=== PATIENT | female | born 1940 | race Caucasian/White ===

== ENCOUNTER → 2016-06-18 | Outpatient (CLI) | payer MEDICARE ==
[2014-06-10 15:31] VITALS: BP 104/53
[~2016-06-18] MED LIST: ALPR0.5T6 PO; ASPI-482 PO; ATOR40TA59 PO; BUSP10TA PO; BUSP7.5T PO; CHOL10003 PO; CHOL500016 PO; FERR325T58 PO; FOLI1TAB39; INSU100V8 SQ; INSU100V9 SQ; LOSA50TA6 PO; MELO-150 PO; MELO-156 PO; METO10TA PO; MORP15TA PO; MORP30TA PO; MORP30TA3 PO; OMEG-33 PO; ONDA4TAB7 PO; OXYC1TAB8 PO; PROM25TA10 PO; ROPI5TAB PO; SIMV80TA3 PO; SITA100T PO; TOPI50TA4 PO
--- NOTE | 2016-06-19 05:02 | PAIN ---
DATE OF SERVICE: 06/18/2016 DIAGNOSES: 1. Lumbar radiculopathy with lumbar spinal stenosis. 2. Myofascial pain. 3. Multiple joint pain. 4. Restless leg syndrome. HISTORY OF PRESENT ILLNESS: The patient is a 75-year-old female who returns for followup status post medication management with both MS Contin and oxycodone for breakthrough pain. Also, the patient is taking Requip at night for restless leg syndrome, which she reports does fairly well and Meloxicam daily for multiple joint pain. The patient is scheduled to see debt recovery officer coming up in a few months, but still having significant pain. She complains today of multiple joint pain in the wrists, elbows, shoulders, hips, knees, ankles and low back. The patient reports that her pain medications; however, is doing fairly well with controlling medication about 70-75% improvement, but she "hurts all over." The patient reports the pain as 7 on a scale of 10 at its worst, is having some increased back pain as well across the low back bilaterally with some radiation down the posterior gluteus and thighs, but not much above baseline on report. The patient reports no new motor or sensory deficits, no new bowel or bladder incontinence or other complaints, but still taking her medication with good discipline, has had appropriate K-TRACS reporting to date and appropriate urinalysis to date as well. PHYSICAL EXAMINATION: VITAL SIGNS: The patient's blood pressure 143/62, pulse 83, respirations 18, temperature 98.1 degrees Fahrenheit, height is 62 inches. Weight is 272 pounds. GENERAL: The patient is awake, alert, oriented, appropriate, very pleasant demeanor. HEENT: Head shows normocephalic, atraumatic. Extraocular movements are intact, symmetrical. Oral cavity, mucous membranes are moist and pink. Dentition is intact. NECK: Shows anterior throat supple without palpable lymphadenopathy noted. Swallow reflex is symmetrical. Neck shows full rotational motion of cervical spine, both laterally as well as extension and flexion without difficulty. CHEST: Shows normal on inspection. Breath sounds are clear to auscultation bilaterally. HEART: Shows S1 and S2 clear. No murmurs are auscultated. ABDOMEN: Soft, obese, nontender, nondistended, is obese, but without rebound or guarding demonstrated. BACK: Shows spine grossly in midline. Moderate exaggeration of thoracic kyphosis and mild flattening of lumbar lordotic curvature. Lumbar paraspinous muscle shows symmetrical with inspection and palpation shows moderate tenderness throughout the upper, middle and lower distribution, mostly in the lower distribution greater tenderness reported in the upper, middle, but symmetrical firm musculature, but normal in muscle girth. No trigger points. No radiation. No atrophy, hypertrophy. No tenderness over the sacrum or sacroiliac regions. The patient shows good rotation and motion of the lumbar spine, both laterally as well as extension and flexion without increase in pain. Lower extremities showed deep tendon reflexes 1+ in the biceps and the patellar and tendo calcaneus tendons and are equal. Motor exam is approximately 4 on a scale of 5, but symmetrical with dorsiflexion, extension, quadriceps and hamstring flexion. Peripheral pulses are 1+ posterior tibial and dorsalis pedis pulses. No peripheral edema is noted bilaterally. Options were discussed with the patient. The patient's old chart was reviewed. CURRENT MEDICATIONS: Has been updated. CURRENT REVIEW OF SYSTEMS: Updated today as well. We will refill the patient's medications, MS Contin as well as oxycodone for breakthrough. PLAN: The patient was given instructions as well as side effects to be aware with the medications and see debt recovery officer as new consult as scheduled. Also discussed interventional techniques and she has had lumbar epidural steroid injections in the past, but it has been several years since she has done this, she is considering this, but is not quite ready to commit to interventional techniques as she not had significant success with these in the past, but with the increase in the low back pain and radicular qualities, we discussed this and she will consider it and return sooner than 90 days if necessary. The patient's medications were refilled for 90 days. The patient was given instruction as well as side effects to be aware with the medications and understands these, will increase activity as tolerated, encouraged her to continue strengthening and stretching exercises, walking daily and possible heat and massage therapies to the low back. The patient is also considering buying a new bed which is adjustable. I encouraged her to do so if she is able to as this may help her get some sleep at night as well. AYRIEL ZHANG MD DR: ANASTASIYA/baltazar JOB#: [id number] / [id number]
== END | disposition home or self-care (01) ==
LOC: PNCL 11:07
PROVIDERS: ATTEND Anesthesiology
DX: M54.16 Radiculopathy, lumbar region (principal); M48.06 Spinal stenosis, lumbar region; M79.1 Myalgia; M25.50 Pain in unspecified joint; G25.81 Restless legs syndrome
CPT/HCPCS: G0463

== ENCOUNTER → 2016-09-10 | Outpatient (CLI) | payer MEDICARE ==
[2014-06-10 15:31] VITALS: BP 104/53
[~2016-09-10] MED LIST changes: -TOPI50TA4 PO; +TOPI50TA75 PO
--- NOTE | 2016-09-10 14:08 | PAIN ---
DATE OF SERVICE: 09/10/2016 PROGRESS NOTE FOR PAIN CLINIC DIAGNOSES: 1. Lumbar radiculopathy with lumbar spinal stenosis. 2. Myofascial pain. 3. ____ joint pain. 4. Restless leg syndrome. HISTORY OF PRESENT ILLNESS: The patient is a 75-year-old female, who returns for followup status post medication management with both MS Contin and oxycodone for breakthrough pain also taking meloxicam, Requip and Flexeril. The patient reports she is doing fairly well with this, has been on fairly stable regimen reports about 75% improvement in her pain without significant side effects. The patient reports still significant pain in the low back, bilateral lower extremities, more on the left than the right, shoulders, knees, hips. The patient reports she is seeing a sponge diver in about 2 weeks. Reports the pain is 8 on a scale of 10 is worse with 3 on a scale of 10 currently. The patient reports it is cramping and constant main in the low back, left leg, right leg, posterior hips, low back and some pain in the right hand, more recently as well. The patient reports no new motor or sensory deficits, no new bowel or bladder incontinence or other complaints. PHYSICAL EXAMINATION: VITAL SIGNS: The patient's blood pressure 144/75, pulse 70, respirations are 18, temperature 97.8 degrees Fahrenheit, height is 5 feet 7 inches, weight 278 pounds. GENERAL: The patient is awake, alert, oriented, appropriate, very pleasant demeanor. HEENT: Head shows normocephalic, atraumatic. Extraocular movements are intact and symmetrical. Oral cavity: Mucous membranes moist and pink. Dentition is intact. NECK: Shows anterior throat supple without palpable lymphadenopathy noted. Swallow reflex is symmetrical. CHEST: Shows normal on inspection. Breath sounds clear to auscultation bilaterally. HEART: Shows S1 and S2 clear. ABDOMEN: Soft, nontender, nondistended. No palpable organomegaly. No rebound or guarding demonstrated. BACK: The patient's back shows spine grossly in midline with a normal appearing thoracic kyphosis slightly exaggerated and some mild flattening of lumbar lordotic curvature the lumbar paraspinous muscles show some moderate tenderness throughout the middle and lower distribution of paraspinous muscles bilaterally, but without significant radiation. EXTREMITIES: Lower extremities showed deep tendon reflexes 1+ in the patellar and tendo calcaneus tendons are equal. Motor exam is strong with dorsiflexion, extension, quadriceps and hamstring flexion rated at 5/5 and symmetrical. Options were discussed with the patient. At this time, the patient's old chart was reviewed as her current medication regimen updated. Current review of systems updated today as well. We will refill the patient's oxycodone as well as MS Contin, Flexeril, Requip and meloxicam. The patient was given instruction as well as side effects to be aware of these medications. The patient has had appropriate K-TRACS reporting and appropriate urinalysis to date is doing very well with her regimen. We did discuss potential for interventional techniques In the future, she would like to consider lumbar epidural steroid injections. We discussed with her before and like to wait and see if her pain improves better after her rheumatology appointment depending on the recommendations. We will have her follow up after that. YARIEL ZHANG MD DR: ANASTASIYA/baltazar JOB#: [id number] / [id number]
== END | disposition home or self-care (01) ==
LOC: PNCL 10:39
PROVIDERS: ATTEND Anesthesiology
DX: M54.16 Radiculopathy, lumbar region (principal); M48.06 Spinal stenosis, lumbar region; M79.1 Myalgia; M25.50 Pain in unspecified joint; G25.81 Restless legs syndrome
CPT/HCPCS: G0463

== ENCOUNTER → 2016-10-11 | Outpatient (CLI) | payer MEDICARE ==
[2014-06-10 15:31] VITALS: BP 104/53
[~2016-10-11] MED LIST changes: -MELO-150 PO; -MELO-156 PO; +MELO15TA23 PO; +MELO7.5T29 PO; -TOPI50TA75 PO; +TOPI50TA8 PO
--- NOTE | 2016-10-11 17:54 | KCIC ---
Bilateral digital screening mammograms: Reason for examination: Routine screening. Comparison is made to previous studies dated 08/08/2015 and 02/01/2015. The skin and nipples show no abnormalities. No abnormal lymph nodes are seen. The breast parenchyma is predominantly fatty. (Breast density: Category A.) There are no dominant masses, suspicious calcifications or architectural distortions. Scattered benign calcifications are again seen. Impression: No evidence of malignancy. Recommend routine screening. BI-RADS Category 2: Benign. "Our facility is accredited by the [employer] Mammography Program." This patient's information has been entered into a reminder system for the patient to be notified with the results of her examination and a target date for the next mammogram. Electronically signed by: Kaylin Ojeda MD (10/11/2016 5:50 PM)
== END | disposition home or self-care (01) ==
LOC: KCIC MAMMO 13:41
PROVIDERS: ATTEND Family Medicine
DX: Z12.31 Encounter for screening mammogram for malignant neoplasm of breast (principal)
CPT/HCPCS: G0202; 77067

== ENCOUNTER → 2016-11-05 | Outpatient (CLI) | payer MEDICARE ==
[2014-06-10 15:31] VITALS: BP 104/53
== END | disposition home or self-care (01) ==
LOC: PNCL 11:13
PROVIDERS: ATTEND Anesthesiology
DX: M48.06 Spinal stenosis, lumbar region (principal); M54.16 Radiculopathy, lumbar region; G25.81 Restless legs syndrome; M79.1 Myalgia; M25.50 Pain in unspecified joint
CPT/HCPCS: G0463

== ENCOUNTER → 2016-12-31 | Outpatient (CLI) | payer MEDICARE ==
[2014-06-10 15:31] VITALS: BP 104/53
[~2016-12-31] MED LIST changes: +CELE200C PO
--- NOTE | 2016-12-31 13:01 | PAIN ---
DATE OF SERVICE: 12/31/2016 DIAGNOSES: 1. Lumbar radiculopathy with lumbar spinal stenosis. 2. Myofascial pain. 3. Multiple joint pains. 4. Restless legs syndrome. HISTORY OF PRESENT ILLNESS: This is a 76-year-old female who returns for followup status post medication management with both MS Contin and oxycodone as well as Requip and Flexeril. The patient reports she has been doing very well, been on a very stable regimen. She was timing her medications off a little bit and she has been out of her morphine now for about 3 days, which is causing increasing pain to a significant extent. She is also having some anxiety with this increased pain in the low back, left shoulder, especially as she has a rotator cuff tear there, by report which has been much more tender without the medication as well. The patient has been taking oxycodone 4 times a day, which has helped to some extent, but not decreasing the pain completely. The patient reports it as a 9 on a scale of 10 is worse as average about 8 and as low currently as 8 today. The patient reports cramping, shooting, burning, stinging, also in the ankles, right hand, base of the neck, shoulder on the left and low back. The patient reports no new motor or sensory deficits, no new bowel or bladder incontinence. The patient reports it does awaken her from sleep significantly over the last few days MS Contin, she is not sleeping much at all. She has a walker with her today, but she is normally not using any assistive devices to ambulate. The patient's medication list was updated today as was her review of systems which is negative for items of those mentioned in history of present illness. ALLERGIES: The patient has no known drug allergies. PHYSICAL EXAMINATION: VITAL SIGNS: Today, blood pressure 110/68, pulse 107, respirations are 18, temperature is 98.4 degrees Fahrenheit. Height is 5 feet 7 inches, weight is 264 pounds. GENERAL: The patient is awake, alert, oriented, appropriate, very pleasant demeanor. HEENT: Head shows normocephalic, atraumatic. Extraocular movements are intact, symmetrical. Oral cavity, mucous membranes are moist and pink. Dentition is intact. NECK: Shows anterior throat supple without palpable lymphadenopathy noted. Swallow reflex is symmetrical. CHEST: Shows normal on inspection. Breath sounds clear to auscultation bilaterally. HEART: Shows S1 and S2 clear. No murmurs auscultated. ABDOMEN: Soft, nontender, nondistended. No palpable organomegaly is noted. Obese, but no rebound or guarding demonstrated. BACK: Shows spine grossly midline. Slight exaggeration of thoracic kyphosis, some minor flattening of lumbar lordotic curvature. Lumbar paraspinous muscle shows some moderate tenderness to palpation throughout the upper, middle and lower distribution of paraspinous muscles bilaterally without radiation and appears symmetrical, but with significant tenderness, mainly in the middle and lower, but also in the upper distribution, more significant in the lower distribution, again without radiation. No tenderness over the spinous processes, sacrum or sacroiliac regions. The patient shows some minor tenderness with extension, but not with forward flexion of 45 degrees, right and left lateral rotation at 10 degrees, is intact without pain reported. EXTREMITIES: The patient's lower extremities show deep tendon reflexes at 1+ in the patellar and tendo calcaneus tendons. Motor exam is strong with 5/5 dorsiflexion and extension. Peripheral pulses are 1+ posterior tibial and dorsalis pedis pulses. No peripheral edema is noted. Again, patient is walking with a walker today, has a shuffling gait, does not appear to favor the right or left lower extremity significantly one of the other, but is shuffling and very deliberate with her steps and the walker. Options were discussed with the patient. The patient's old chart was reviewed as her current medication regimen and updated as noted. Current review of systems updated as noted. We will refill patient's MS Contin as well as oxycodone, Requip and Flexeril. The patient was given instruction as well as side effects to be aware of each of the medications. I also asked her to discuss with her pharmacy counting the pills for her. She generally has no difficulty with timing of her medications. The patient will do this with her pharmacist. Also, increase activity as tolerated when she is feeling better with her normal regimen medication. The patient has also had appropriate K-TRACS reporting and urinalysis to date. We will refill for 2 months. The patient was given instruction as well as side effects to be aware of. We will follow up as scheduled in approximately 2 months or sooner if necessary. The patient is encouraged to increase her activity, also maintain hydration. YARIEL ZHANG MD DR: ANASTASIYA/baltazar JOB#: [id number] / [id number]
== END | disposition home or self-care (01) ==
LOC: PNCL 11:05
PROVIDERS: ATTEND Anesthesiology
DX: M54.16 Radiculopathy, lumbar region (principal); M48.06 Spinal stenosis, lumbar region; G25.81 Restless legs syndrome; F41.9 Anxiety disorder, unspecified; M79.1 Myalgia
CPT/HCPCS: G0463

== ENCOUNTER → 2017-04-11 | Outpatient (CLI) | payer MEDICARE ==
[2014-06-10 15:31] VITALS: BP 104/53
--- NOTE | 2017-04-11 18:02 | PAIN ---
DATE OF SERVICE: 04/11/2017 DIAGNOSES: 1. Lumbar radiculopathy with lumbar spinal stenosis. 2. Myofascial pain. 3. Multi-joint pain. 4. Restless legs syndrome. HISTORY OF PRESENT ILLNESS: The patient is a 76-year-old female who returns for followup status post medication management with both MS Contin and oxycodone. The patient reports that she has done quite well with this. Generally very stable regimen with about an 80% improvement in pain mainly in her low back. Her low back has had bothered her more recently. She also had an injury to her left shoulder and she has been on some physical therapy for this as well at a local physical therapy area near her home in [place], [place]. The patient reports that her shoulder is getting much better. Back is still having some significant pain described as aching, dull, sharp, but only on and off. It is worse with standing, walking, changing positions, better with sitting down or resting, lying down, does not awaken her from sleep at night. She sleeps about 8 hours a night without difficulty. The patient reports her pain is a 9 on a scale of 10 at its worse in the low back, 5 on average and 3 at its least, is a 3 today. The patient reports no new motor or sensory deficits, no new bowel or bladder incontinence or other complaints. PHYSICAL EXAMINATION: VITAL SIGNS: Today, the patient's blood pressure is 135/81, pulse 94, respirations 18, temperature 97.3 degrees Fahrenheit. Height 5 feet 5 inches, weight is 251 pounds. GENERAL: The patient is awake, alert, oriented, appropriate, very pleasant demeanor. HEENT: Head shows normocephalic, atraumatic. Extraocular movements are intact, symmetrical. Oral cavity: Mucous membranes moist and pink. Dentition is intact. NECK: Shows anterior throat supple without palpable lymphadenopathy noted. Swallow reflex is symmetrical. CHEST: Shows normal on inspection. Breath sounds are clear to auscultation bilaterally. HEART: Shows S1, S2 clear. No murmurs auscultated. ABDOMEN: Obese, soft, nontender, nondistended. No palpable organomegaly is noted. BACK: Shows spine grossly in midline. Slight exaggeration of thoracic kyphosis and mild flattening lumbar lordotic curvature. Lumbar paraspinous muscle shows symmetrical on inspection with palpation, is moderately tender throughout the upper, middle and lower distribution of paraspinous muscles and mildly firm without radiation. No trigger points, no other abnormalities. No tenderness over the sacrum or sacroiliac regions, which is good rotational motion both laterally as well as extension and flexion without significant increase in pain. LOWER EXTREMITIES: Show deep tendon reflexes 1+ in the patellar and tendo calcaneus tendons. Motor exam is strong with 5 dorsiflexion, extension and equal bilaterally. Peripheral pulses are 1+ posterior tibial. No peripheral edema is noted bilaterally. Options were discussed with the patient. The patient's old chart was reviewed as her current medication regimen and updated. Current review of systems is updated today as well. We will refill the patient's MS Contin as well as oxycodone with instructions, side effects to be aware of. Also, Requip for restless legs syndrome. The patient was given instruction as well as side effects to be aware of this as well. The patient will follow up in approximately 2 months, was given 2-month prescription supply. The patient was encouraged to increase her activity. Also, we discussed physical therapy with her shoulder and she is wanting if this may help with her back some as her myofascial pain seems to be increased. We will give her orders to take to the therapy department in [place] and for the low back as well and follow up as scheduled. YARIEL ZHANG MD DR: ANASTASIYA/baltazar JOB#: [id number] / [id number]
== END | disposition home or self-care (01) ==
LOC: PNCL 09:55
PROVIDERS: ATTEND Anesthesiology
DX: M48.061 Spinal stenosis, lumbar region without neurogenic claudication (principal); M54.16 Radiculopathy, lumbar region; G25.81 Restless legs syndrome
CPT/HCPCS: G0463

== ENCOUNTER → 2017-05-30 | Outpatient (CLI) | payer MEDICARE ==
[~2017-05-30] MED LIST changes: -ALPR0.5T6 PO; -ASPI-482 PO; -ATOR40TA59 PO; +BUPIVACAINE MPF 0.25% 10 ML VIAL.; -BUSP10TA PO; -BUSP7.5T PO; -CELE200C PO; -CHOL10003 PO; -CHOL500016 PO; -FERR325T58 PO; -FOLI1TAB39; -INSU100V8 SQ; -INSU100V9 SQ; +IOHEXOL 180 MG/ML 10 ML VIAL.; -LOSA50TA6 PO; -MELO15TA23 PO; -MELO7.5T29 PO; -METO10TA PO; -MORP15TA PO; -MORP30TA PO; -MORP30TA3 PO; -OMEG-33 PO; -ONDA4TAB7 PO; -OXYC1TAB8 PO; -PROM25TA10 PO; -ROPI5TAB PO; -SIMV80TA3 PO; -SITA100T PO; -TOPI50TA8 PO; +methylPREDNISolone ACETATE 80 MG/ML VIAL.
== END | disposition home or self-care (01) ==
LOC: PNCL 09:15
DX: M48.061 Spinal stenosis, lumbar region without neurogenic claudication (principal); M19.012 Primary osteoarthritis, left shoulder; E11.9 Type 2 diabetes mellitus without complications; F41.9 Anxiety disorder, unspecified; Z86.39 Personal history of other endocrine, nutritional and metabolic disease; Z87.39 Personal history of other diseases of the musculoskeletal system and connective tissue; Z88.0 Allergy status to penicillin; Z88.8 Allergy status to other drugs, medicaments and biological substances
CPT/HCPCS: 20610; 77002; J1040; J3490; Q9965

== ENCOUNTER → 2017-07-25 | Outpatient (CLI) | payer MEDICARE ==
[~2017-07-25] MED LIST changes: -BUPIVACAINE MPF 0.25% 10 ML VIAL.; +methylPREDNISolone ACETATE 40 MG/ML VIAL.
== END ==
LOC: PNCL 10:55
DX: M48.061 Spinal stenosis, lumbar region without neurogenic claudication (principal); M54.16 Radiculopathy, lumbar region; M79.1 Myalgia; M25.50 Pain in unspecified joint; M19.012 Primary osteoarthritis, left shoulder; G25.81 Restless legs syndrome
CPT/HCPCS: 62323; J1030; J1040; Q9965

== ENCOUNTER → 2017-09-19 | Outpatient (CLI) | payer MEDICARE | END | disposition home or self-care (01) | LOC: PNCL 10:58 | DX: M48.061 Spinal stenosis, lumbar region without neurogenic claudication (principal); M54.16 Radiculopathy, lumbar region; M19.012 Primary osteoarthritis, left shoulder; G25.81 Restless legs syndrome; M79.1 Myalgia | CPT/HCPCS: G0463 ==

== ENCOUNTER → 2017-09-25 | Outpatient (CLI) | payer MEDICARE | END | disposition home or self-care (01) | LOC: KCIC 11:08 | DX: R91.8 Other nonspecific abnormal finding of lung field (principal) | CPT/HCPCS: 71046 ==

== ENCOUNTER → 2017-11-14 | Outpatient (CLI) | payer MEDICARE | END | disposition home or self-care (01) | LOC: PNCL 11:05 | DX: M48.061 Spinal stenosis, lumbar region without neurogenic claudication (principal); M19.012 Primary osteoarthritis, left shoulder; M79.1 Myalgia; I10 Essential (primary) hypertension; E11.9 Type 2 diabetes mellitus without complications; E78.00 Pure hypercholesterolemia, unspecified; D64.9 Anemia, unspecified | CPT/HCPCS: G0463 ==

== ENCOUNTER → 2018-01-09 | Outpatient (CLI) | payer MEDICARE ==
[2014-06-10 15:31] VITALS: BP 104/53
[~2018-01-09] MED LIST changes: +ALPR0.5T6 PO; +ASPI-482 PO; +ATOR40TA59 PO; +BUSP10TA PO; +BUSP7.5T PO; +CELE200C PO; +CHOL10003 PO; +CHOL500016 PO; +FERR325T58 PO; +FOLI1TAB39; +INSU100V11 IJ; +INSU100V8 SQ; +INSU100V9 SQ; -IOHEXOL 180 MG/ML 10 ML VIAL.; +LOSA50TA7 PO; +MELO15TA23 PO; +MELO7.5T29 PO; +METO10TA PO; +MORP15TA PO; +MORP30TA PO; +MORP30TA3 PO; +NPH,100V5 SQ; +OMEG-33 PO; +ONDA4TAB7 PO; +OXYC1TAB8 PO; +PROM25TA10 PO; +ROPI1TAB PO; +ROPI5TAB PO; +SIMV80TA7 PO; +SITA100T PO; +TOPI50TA8 PO; -methylPREDNISolone ACETATE 40 MG/ML VIAL.; -methylPREDNISolone ACETATE 80 MG/ML VIAL.
--- NOTE | 2018-01-09 18:42 | PAIN ---
DATE OF SERVICE: 01/09/2018 DIAGNOSES: 1. Lumbar radiculopathy with lumbar spinal stenosis. 2. Myofascial pain. 3. Multiple joint pain. 4. 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 5. Restless legs syndrome. HISTORY OF PRESENT ILLNESS: The patient is a 77-year-old female who returns for followup status post medication management with both MS Contin and oxycodone, also taking Requip and Flexeril. The patient reports she is doing fairly well with this, although she ran out of her medications towards the latter part of November and was unable to refill these. She had had some withdrawal symptoms of some diarrhea at that time for about a week. The patient reports that she has no idea how she ran out of her medications. She is very careful about not overtaking them or placing them in areas but she reports they were completely misplaced and/or lost and other than that has been back on track with medications when she got a refill at the end of November. The patient reports no new motor or sensory deficits, no new bowel or bladder incontinence. Still significant pain in the low back, left shoulder, which was exacerbated significantly when she ran out of her medication. Overall, the patient reports the patient's pain is decreased by about 80% with the medication and without specific side effects. The patient reports the pain is 8 on a scale of 10 at its worst, 6 on average, 4 at its least and is a 4 today. The patient reports she is increasing her activity with greater distance walking, able to do household activities, has no difficulty with sedation or side effects. She is having some trouble sleeping, however, at night more recently. Now, the patient reports pain is basically aching, but also stabbing and shooting in the low back into the bilateral lower extremities, mostly in posterior gluteus, posterolateral thighs into the left shoulder as well. PHYSICAL EXAMINATION: VITAL SIGNS: The patient's blood pressure 147/96, pulse 101, respirations 18, temperature 98.7 degrees Fahrenheit and weight is 246 pounds. GENERAL: The patient is awake, alert, oriented, appropriate, very pleasant demeanor. HEENT: Head shows normocephalic, atraumatic. Extraocular movements intact and symmetrical. Oral cavity, mucous membranes moist and pink. Dentition is intact. NECK: Shows anterior throat supple without palpable lymphadenopathy noted. Swallow reflex symmetrical. CHEST: Shows normal on inspection. Breath sounds clear to auscultation bilaterally. HEART: Shows S1, S2 clear. No murmurs auscultated. ABDOMEN: Obese, soft, nontender, nondistended. No palpable organomegaly is noted. No rebound or guarding demonstrated. BACK: Shows spine grossly in the midline. Normal appearing thoracic kyphosis and slight increase in thoracic curvature and some minor flattening of lumbar lordotic curvature. Lumbar paraspinous musculature shows symmetrical on inspection, with palpation shows some moderate tenderness but only diffusely bilaterally without radiation. The patient has good rotational motion of lumbar spine, both laterally as well as extension and flexion. EXTREMITIES: Lower extremities show deep tendon reflexes 1+ in the patella and tendo-calcaneus tendons. Motor exam is 5/5 with dorsiflexion, extension, quadriceps and hamstring flexion equal bilaterally. Peripheral pulses are 1+ posterior tibia. No peripheral edema is noted. PLAN: Options were discussed with the patient. The patient's old chart was reviewed as her current medication regimen and updated. Current review of system is updated today as well. We will refill the patient's MS Contin as well as oxycodone 7.5 mg, Flexeril and Requip for a 2-month period. The patient has had appropriate K-TRACS reporting as well as appropriate urinalysis to date. The patient also will be given a trial of Ambien 5 mg to take at bedtime only when needed for sleep. The patient was given instructions as well as side effects to be aware of with each of the medications. Will follow up in approximately 2 months or sooner as necessary. YARIEL ZHANG MD DR: ANASTASIYA/baltazar JOB#: [id number] / [id number]
== END | disposition home or self-care (01) ==
LOC: PNCL 10:41
PROVIDERS: ATTEND Anesthesiology
DX: M54.16 Radiculopathy, lumbar region (principal); M48.061 Spinal stenosis, lumbar region without neurogenic claudication; M19.012 Primary osteoarthritis, left shoulder; G25.81 Restless legs syndrome; M79.1 Myalgia; E11.9 Type 2 diabetes mellitus without complications; I10 Essential (primary) hypertension; I25.10 Atherosclerotic heart disease of native coronary artery without angina pectoris; Z86.2 Personal history of diseases of the blood and blood-forming organs and certain disorders involving the immune mechanism; Z86.39 Personal history of other endocrine, nutritional and metabolic disease; Z87.39 Personal history of other diseases of the musculoskeletal system and connective tissue; Z88.0 Allergy status to penicillin; Z88.8 Allergy status to other drugs, medicaments and biological substances
CPT/HCPCS: G0463

== ENCOUNTER → 2018-03-13 | Outpatient (CLI) | payer MEDICARE ==
[2014-06-10 15:31] VITALS: BP 104/53
--- NOTE | 2018-03-13 22:57 | PAIN ---
DATE OF SERVICE: 03/13/2018 PROGRESS NOTE FOR PAIN CLINIC DIAGNOSES: 1. Lumbar radiculopathy with lumbar spinal stenosis. 2. Myofascial pain. 3. Multiple joint pain. 4. Left shoulder joint pain with osteoarthritis. 5. Restless leg syndrome. HISTORY OF PRESENT ILLNESS: The patient is a 77-year-old female who returns for followup status post medication management with oxycodone 7.5 mg as well as MS Contin 30 mg q. 12 hours. The patient is also taking Requip and Ambien to help sleep and reports she does quite well with these without side effects. The patient reports only some pain in the left shoulder recently as well as the low back and the hips. We tried a lumbar epidural steroid injection with her in June, which is really not significantly helpful in the long-term. The patient is doing very well with her medications, however. Reports no side effects, reports about 75% improvement overall. The patient reports no new motor or sensory deficits and no new changes. Still significant pain as noted mostly in the low back as well as in the joints. The patient reports muscle spasms in her right leg as well, which has been bothering her the last few days. Otherwise, she is sleeping well at night. No new motor or sensory deficits or other complaints. Rates her pain is 8 on a scale of 10 at its worst, 6 on average and 3 at its least and is a 3 today. The patient reports it is aching, burning, radiating at times in the left hip, but mostly in the low back itself and the left shoulder, sometimes cramping and stabbing as well as some cramping and spasms in the right leg today. PHYSICAL EXAMINATION: VITAL SIGNS: The patient's blood pressure 186/87, pulse 87, respirations are 18 and temperature 98.2 degrees Fahrenheit. Height is 5 feet 7 inches and weight is 242 pounds. GENERAL: The patient is awake, alert, oriented, appropriate and very pleasant demeanor. HEENT: Head shows normocephalic and atraumatic. Extraocular movements are intact and symmetrical. Oral cavity, mucous membranes are moist and pink. Dentition is intact. NECK: Shows anterior throat supple without palpable lymphadenopathy noted. Swallow reflex is symmetrical. CHEST: Shows normal on inspection. Breath sounds clear to auscultation bilaterally. HEART: Shows S1 and S2 clear. No murmurs auscultated. ABDOMEN: Soft, nondistended, obese and nontender. No palpable organomegaly is noted. No rebound or guarding demonstrated. BACK: Shows spine grossly in the midline. Slight exaggeration of the thoracic kyphosis, some mild flattening of the lumbar lordotic curvature. Lumbar paraspinous muscles shows diffusely tender throughout the upper, middle and lower distribution of the paraspinous muscles without radiation, without trigger points or asymmetry. No tenderness over the spinous processes, sacrum or sacroiliac regions. The patient has good rotational motion of the lumbar spine, both laterally as well as extension and flexion without significant difficulty or pain reported. EXTREMITIES: The patient's lower extremities show deep tendon reflexes 1+ in the patellar and tendo-calcaneus tendons. Motor exam is strong with 5/5 dorsiflexion, extension, quadriceps and hamstring flexion equal. Peripheral pulses are 1+ posterior tibial. No peripheral edema is noted bilaterally. Options were discussed with the patient. The patient's old chart was reviewed as well as her current medication regimen updated. Current review of systems updated today as well. We will refill the patient's medication. She has had appropriate K-TRACS reporting as well as appropriate urinalysis to date. We will refill for 2 months. The patient was given instruction as well as side effects to be aware of with each of the medications refilled and will follow up in 2 months or sooner if necessary. YARIEL ZHANG MD DR: ANASTASIYA/baltazar JOB#: [id number] / [id number]
== END | disposition home or self-care (01) ==
LOC: PNCL 11:06
PROVIDERS: ATTEND Anesthesiology
DX: M48.061 Spinal stenosis, lumbar region without neurogenic claudication (principal); M54.16 Radiculopathy, lumbar region; M19.012 Primary osteoarthritis, left shoulder; M79.18 Myalgia, other site; G25.81 Restless legs syndrome
CPT/HCPCS: G0463

== ENCOUNTER → 2018-05-01 | Outpatient (CLI) | payer MEDICARE ==
[2014-06-10 15:31] VITALS: BP 104/53
[~2018-05-01] MED LIST changes: +LOSA-73 PO; -LOSA50TA7 PO; +SIMV80TA17 PO; -SIMV80TA7 PO
--- NOTE | 2018-05-01 14:01 | KCIC ---
EXAM: Sacrum and coccyx, 3 views; right hip and pelvis, 3 views. HISTORY: Pain status post fall. COMPARISON: None. FINDINGS: 3 views of the sacrum and coccyx and 3 views of the pelvis and right hip are obtained. There is deformity of the sacrococcygeal junction on a single projection. There is grade 1 anterolisthesis of L4 and L5. There is minimal retrolisthesis of L5 on S1. There is degenerative endplate remodeling with disc space narrowing and facet arthropathy at the lumbosacral junction. There is lumbar scoliosis. The femoral heads are normal in configuration. There is no hip fracture, dislocation or subluxation. There are vascular calcifications. IMPRESSION: 1. Slight deformity of the sacrococcygeal junction. This may be projectional, due to the sequela of remote injury or a minimally displaced fracture. Correlate for pain in this location. 2. Degenerative change involving the lumbar spine, described above. Electronically signed by: Janelle Canada MD (05/01/2018 1:57 PM) [id number]
--- NOTE | 2018-05-01 14:35 | KCIC ---
EXAM: Head CT without contrast. HISTORY: Confusion. TECHNIQUE: Computed tomographic images of the head were obtained without contrast. *One or more of the following individualized dose reduction techniques were utilized for this examination: 1. Automated exposure control. 2. Adjustment of the mA and/or kV according to patient size. 3. Use of iterative reconstruction technique. COMPARISON: MRI dated 07/31/2012. FINDINGS: There is no intracranial hemorrhage. There is no mass effect or midline shift. There is asymmetry in the size of the left greater than right frontal horns of the lateral ventricles due to asymmetric frontal volume loss. There are scattered areas of hypodensity within the cerebral white matter due to chronic small vessel disease. There were a few small suspected chronic cortical infarcts. There is a prominent left choroid fissure cyst. There is evidence of lens surgery. The visualized paranasal sinuses are unremarkable. There is minimal fluid within the inferior left mastoid air cells. No calvarial lesion is seen. IMPRESSION: 1. Scattered areas of hypodensity throughout the cerebral white matter, likely due to chronic small vessel disease. 2. Suspected small bilateral chronic cortical infarcts. 3. Cerebral atrophy. 4. Note is made that MRI is more sensitive for acute infarction. Electronically signed by: Janelle Canada MD (05/01/2018 2:31 PM) [id number]
== END | disposition home or self-care (01) ==
LOC: KCIC CT 10:10
PROVIDERS: ATTEND Family Medicine
DX: M53.3 Sacrococcygeal disorders, not elsewhere classified (principal); M43.8X8 Other specified deforming dorsopathies, sacral and sacrococcygeal region; M25.551 Pain in right hip; M47.816 Spondylosis without myelopathy or radiculopathy, lumbar region; M41.86 Other forms of scoliosis, lumbar region; I73.89 Other specified peripheral vascular diseases; G31.89 Other specified degenerative diseases of nervous system; Z91.81 History of falling
CPT/HCPCS: 70450; 72220; 73502

== ENCOUNTER → 2018-05-08 | Outpatient (CLI) | payer MEDICARE ==
[2014-06-10 15:31] VITALS: BP 104/53
--- NOTE | 2018-05-08 18:07 | PAIN ---
DATE OF SERVICE: 05/08/2018 DIAGNOSES: 1. Lumbar radiculopathy with lumbar spinal stenosis. 2. Myofascial pain. 3. Multiple joint pain with left shoulder joint pain and osteoarthritis. 4. Restless legs syndrome. HISTORY OF PRESENT ILLNESS: The patient is a 77-year-old female who returns for followup status post medication management with both MS Contin and oxycodone. The patient reports she is doing fairly well with this, but the medication is beginning to work less well than it has in the past. We discussed physiologic tolerance and scaling back on the medication. The patient will try substituting some Motrin or Tylenol in between doses of her oxycodone and maintain the MS Contin on scheduled q.12h. The patient reports no side effects of these medications and reports fairly good relief with medication without side effects at about 75% overall improvement mainly in her low back pain and right shoulder pain. The patient reports pain is a 9 on a scale of 10 at its worst, 7 on average, 4 at its least and is a 5 today. The patient reports it is aching on and off in intensity, worse with some recent rainy weather and worse with activity, but otherwise doing fairly well, sleeps well at night, does not awaken her from sleep, reports she is just "stiff all over." PHYSICAL EXAMINATION: VITAL SIGNS: The patient's blood pressure 136/77, pulse 91, respirations 18, temperature is 98.3 degrees Fahrenheit, height is 5 feet 7 inches, weight is 239 pounds. GENERAL: The patient is awake, alert, oriented, appropriate, very pleasant demeanor. HEENT: Head shows normocephalic, atraumatic. Extraocular movements are intact and symmetrical. Oral cavity, mucous membranes moist and pink. Dentition is intact. NECK: Shows anterior throat supple without palpable lymphadenopathy noted. Swallow reflex is symmetrical. CHEST: Shows normal on inspection. Breath sounds are clear to auscultation bilaterally. HEART: Shows S1, S2 clear. No murmurs auscultated. ABDOMEN: Obese, soft, nontender, nondistended. No palpable organomegaly is noted. No rebound or guarding demonstrated. BACK: Shows spine grossly in the midline, slight exaggerated thoracic kyphosis and minor flattening of the lumbar lordotic curvature. Paraspinous musculature shows symmetrical on inspection with palpation. Lumbar paraspinous musculature shows moderate tenderness throughout the upper, middle, lower distribution of the paraspinous muscles diffusely without radiation. EXTREMITIES: The patient's lower extremities show deep tendon reflexes 1+ in the patellar and tendo calcaneus tendons. Motor exam is approximately 4 on a scale of 5, but equal and symmetrical, dorsiflexion and extension, quadriceps and hamstring flexion. Peripheral pulses are 1+ posterior tibia. No peripheral edema is noted bilaterally. Options were discussed with the patient. The patient's old chart was reviewed as her current medication regimen and updated. Current review of systems is updated today as well. We will refill the patient's MS Contin, oxycodone, Requip and Zanaflex for a 2-month period. The patient has had appropriate K-TRACS reporting as well as appropriate urinalysis to date. We will renew the patient's narcotic contract and she was given a copy of this today, also urinalysis today as a routine screening. The patient will be given 2-month prescription and will follow up in approximately 2 months as scheduled. YARIEL ZHANG MD DR: ANASTASIYA/baltazar JOB#: [id number] / [id number]
== END | disposition home or self-care (01) ==
LOC: PNCL 10:00
PROVIDERS: ATTEND Anesthesiology
DX: M54.16 Radiculopathy, lumbar region (principal); M48.061 Spinal stenosis, lumbar region without neurogenic claudication; G25.81 Restless legs syndrome; M19.90 Unspecified osteoarthritis, unspecified site; M25.512 Pain in left shoulder; Z79.899 Other long term (current) drug therapy
CPT/HCPCS: G0463

== ENCOUNTER → 2018-06-01 | Outpatient (CLI) | payer MEDICARE ==
[2014-06-10 15:31] VITALS: BP 104/53
--- NOTE | 2018-06-01 15:26 | KCIC ---
DOPPLER CAROTID BILAT Clinical Indication: CVA.. Procedure: Pulsed wave and color-flow duplex imaging was utilized to evaluate the extracranial carotid arteries. Comparison: None. Findings: RIGHT SIDE: Mild atherosclerotic plaque on treadwell-scale images. Distal CCA peak systolic velocity 59 cm/sec. ICA peak systolic velocity 93 cm/sec. The right ICA/CCA ratio is 1.6. Flow within the right vertebral artery and right ECA is directed antegrade. LEFT SIDE: Moderate atherosclerotic plaque on treadwlel-scale images. Distal CCA peak systolic velocity 64 cm/sec. ICA peak systolic velocity 55 cm/sec. The left ICA/CCA ratio is 0.9. Flow within the left vertebral artery and left ECA is directed antegrade. Carotid legend: CCA = common carotid artery ICA = internal carotid artery ECA = external carotid artery IMPRESSION: No hemodynamically significance stenosis. Electronically signed by: Ld Schreiber DO (06/01/2018 3:21 PM) [id number]
== END | disposition home or self-care (01) ==
LOC: KCIC US 13:29
PROVIDERS: ATTEND Family Medicine
DX: I65.23 Occlusion and stenosis of bilateral carotid arteries (principal); I10 Essential (primary) hypertension; E11.39 Type 2 diabetes mellitus with other diabetic ophthalmic complication; Z86.73 Personal history of transient ischemic attack (TIA), and cerebral infarction without residual deficits
CPT/HCPCS: 93880

== ENCOUNTER → 2018-07-03 | Outpatient (CLI) | payer MEDICARE ==
[2014-06-10 15:31] VITALS: BP 104/53
--- NOTE | 2018-07-04 01:22 | PAIN ---
DATE OF SERVICE: 07/03/2018 DIAGNOSES: 1. Lumbar radiculopathy with lumbar spinal stenosis. 2. Myofascial pain. 3. Multiple joint pain. 4. 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 5. Restless legs syndrome. HISTORY OF PRESENT ILLNESS: The patient is a 77-year-old female who returns for followup status post medication management with both MS Contin and oxycodone. The patient is also taking Flexeril as well as ReQuip for the restless legs syndrome. The patient reports she had been doing very well on this regimen without significant side effects, has her pain controlled about 70-80% without side effects. The patient reports still some pain in the low back as well as in multiple joints, primarily of the knees and the hips. She started walking with a walker since her last visit as she feels that she is more stable this way. She fell at home in the bathroom and gave herself significant black eye on the right about a month ago, which has resolved, but this has inspired her to use assistive device to ambulate. The patient reports no other changes. No new motor or sensory deficits or other complaints and again no side effects with the medication. The patient reports pain is 7 on a scale of 10 at its worst, 3 on average, 2 at its least and is described as aching and dull, mostly in the joint and in the low back, sometimes some burning, stabbing pain in the back as well, but mostly just dull and aching. PHYSICAL EXAMINATION: VITAL SIGNS: The patient's blood pressure is 152/82, pulse 99, respirations 18, temperature 98.4 degrees Fahrenheit, height 5 feet 7 inches and weighs 240 pounds. GENERAL: She is awake, alert, oriented, appropriate, very pleasant demeanor. HEENT: Exam shows normocephalic, atraumatic. Extraocular movements are intact and symmetrical. Oral cavity: Mucous membranes moist and pink. Dentition is intact. NECK: Shows anterior throat supple without palpable lymphadenopathy noted. Swallow reflex is symmetrical. CHEST: Shows normal on inspection. Breath sounds clear to auscultation bilaterally. HEART: Shows S1, S2 clear. No murmurs auscultated. ABDOMEN: Soft, nontender, nondistended. No palpable organomegaly is noted. No rebound or guarding demonstrated. BACK: Shows spine grossly in the midline. Slight exaggeration of thoracic kyphosis and flattening of the lumbar lordotic curvature. Paraspinous musculature shows symmetrical, but with palpation shows some moderate tenderness in the lumbar distribution upper, middle and lower distribution without radiation. The patient shows good rotational motion of lumbar spine without significant tenderness or pain involved both laterally as well as extension and flexion. EXTREMITIES: The patient's lower extremities show deep tendon reflexes 1+ in the patellar and tendo calcaneus tendons. Motor exam is approximately 4 on a scale 5, but equal and symmetrical with dorsiflexion, extension, quadriceps and hamstring flexion. Peripheral pulses are 1+ posterior tibial. No peripheral edema is noted. Options were discussed with the patient. The patient's old chart was reviewed as her current medication regimen updated. Current review of systems is updated today as well. We will refill the patient's MS Contin as well as oxycodone, also ReQuip and Flexeril for 2 months. The patient had appropriate K-TRACS reporting as well as appropriate urinalysis to date. We will have a urinalysis done today as routine screening. Also, renew the patient's narcotic contract. The patient was given a copy of this as well. The patient will return to the clinic in approximately 2 months or sooner as necessary, will be given instruction and side effects to be aware of with medications. YARIEL ZHANG MD DR: ANASTASIYA/baltazar JOB#: [id number] / [id number]
== END | disposition home or self-care (01) ==
LOC: PNCL 10:29
PROVIDERS: ATTEND Anesthesiology
DX: M48.061 Spinal stenosis, lumbar region without neurogenic claudication (principal); M54.16 Radiculopathy, lumbar region; M19.012 Primary osteoarthritis, left shoulder; M79.18 Myalgia, other site; G25.81 Restless legs syndrome
CPT/HCPCS: G0463

== ENCOUNTER → 2018-09-01 | Outpatient (CLI) | payer MEDICARE ==
[2014-06-10 15:31] VITALS: BP 104/53
--- NOTE | 2018-09-02 01:50 | PAIN ---
DATE OF SERVICE: 09/01/2018 DIAGNOSES: 1. Lumbar radiculopathy with lumbar spinal stenosis. 2. Myofascial pain. 3. Multijoint pain. 4. Left shoulder joint pain with osteoarthritis. 5. Restless legs syndrome. HISTORY OF PRESENT ILLNESS: The patient is a 77-year-old female who returns for followup status post medication management with both oxycodone and MS Contin extended release. The patient is doing fairly well at this point. She has only been taking MS Contin once a day. She is afraid of taking too much. We discussed the bioavailability of the medication as well as the kinetics and the medications continuing purpose, and the patient will begin taking this on a q. 12 hour schedule as she is reporting significant pain later in the day in the evening, which has been keeping her awake and having difficulty sleeping. She also reports she had an adverse effect with Ambien, which is causing oversedation and we had her discontinue this about a month ago. The patient reports her pain is worst, is 8 on a scale of 10 on average and is worse at night and currently 8 today. The patient reports it is aching, cramping in the base of the neck, shoulders, upper back, mid back, low back as her chief complaint. The pain awakens her from sleep; however, when she takes her MS Contin, the pain is gone almost 90%. The patient reports she is able to function during the day with walking, standing, change in positions, traveling without significant discomfort until about 5 in the afternoon the pain returns and it is significant where it is keeping her up at night and she has not been taking her evening dose of the MS Contin. The patient takes the oxycodone, but only very sparingly, sometimes is only up to 2 a day. We discussed this regimen as well. PHYSICAL EXAMINATION: VITAL SIGNS: The patient's blood pressure is 160/84, pulse 90, respirations 18, temperature 98.4 degrees Fahrenheit, height 5 feet 7 inches, weighs 243 pounds. GENERAL: The patient is awake, alert, oriented, appropriate, very pleasant demeanor. HEENT: Head is normocephalic, atraumatic. Extraocular movements are intact and symmetrical. Oral cavity: Mucous membranes are moist and pink. Dentition is intact. NECK: Shows anterior throat supple without palpable lymphadenopathy noted. Swallow reflex is symmetrical. CHEST: Shows normal on inspection. Breath sounds clear to auscultation bilaterally. HEART: Shows S1, S2 clear. No murmurs auscultated. ABDOMEN: Soft, nontender, nondistended. No palpable organomegaly is noted. No rebound or guarding demonstrated. BACK: Shows spine grossly in the midline. Normal-appearing thoracic kyphosis and some slight decrease in curvature of the lumbar lordotic curvature. Lumbar paraspinous muscle shows symmetrical on inspection, with palpation shows some moderate tenderness throughout the upper, middle and lower distribution of paraspinous muscles, but only diffusely without radiation. The patient has good rotational motion of lumbar spine, both laterally as well as extension and flexion without significant pain reported. EXTREMITIES: The patient's lower extremities show deep tendon reflexes 1+ and the patellar and tendo calcaneus tendons are equal. Motor exam is strong with 5/5 dorsiflexion, extension and symmetrical as well. Peripheral pulses are 1+ posterior tibial. No peripheral edema is noted. The patient has had appropriate K-TRACS reported as well as appropriated urinalyses to date. Options were discussed with the patient. The patient's old chart was reviewed as was his current medication regimen updated. Current review of systems updated today as well. We will refill the patient's MS Contin. We discussed taking this q. 12 hours as tolerated. The patient will begin doing this as it may afford her some better pain relief during the day and evening. Also, refill the patient's oxycodone 120 tablets for 2 months, that is 60 per month with instructions and side effects to be aware of discussed of each of her medications. I will refill her Requip as it does help significantly with the restless legs syndrome and Flexeril as she has been taking this sparingly as well, but feels it does help with her low back spasms and is not causing any excessive sedation or other side effects. The patient will follow up in approximately 2 months or sooner as necessary, was asked to call in approximately 1 week with a progress report at that time. YARIEL ZHANG MD DR: ANASTASIYA/baltazar JOB#: [id number] / [id number]
== END | disposition home or self-care (01) ==
LOC: PNCL 13:16
PROVIDERS: ATTEND Anesthesiology
DX: M48.061 Spinal stenosis, lumbar region without neurogenic claudication (principal); M54.16 Radiculopathy, lumbar region; M19.012 Primary osteoarthritis, left shoulder; G25.81 Restless legs syndrome; Z79.891 Long term (current) use of opiate analgesic
CPT/HCPCS: G0463